=== PATIENT | female | born 1965 | race Caucasian/White ===

== ENCOUNTER 2022-02-27 14:09 | Emergency (ER) | payer OTHER, SELFPAY ==
[2022-02-27 14:25] VITALS: BP 100/77; PULSE 61; RESP 20; TEMP 36.4; O2SAT 99
[2022-02-27] MEDS: TETANUS,DIPHTHERIA,AC PERTUSSIS ADULT (0.5 ML) BOOSTRIX IM (15:24)
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
== END 2022-02-27 16:05 | disposition short-term general hospital (02) ==
PROVIDERS: Emergency Provider Nurse Practitioner
DX: S01.412A Laceration without foreign body of left cheek and temporomandibular area, initial encounter (principal); V86.06XA Driver of dirt bike or motor/cross bike injured in traffic accident, initial encounter; S40.012A Contusion of left shoulder, initial encounter; S80.02XA Contusion of left knee, initial encounter; Z23 Encounter for immunization; F17.210 Nicotine dependence, cigarettes, uncomplicated
CPT/HCPCS: 12013; 90471; 90715; 99212; G0463